=== PATIENT | female | born 1930 | race Caucasian/White ===

== ENCOUNTER 2019-01-06 07:44 | Inpatient (IN) | payer MEDICARE, BC ==
[2019-01-06 08:34] LABS: CHLORIDE,CL 100 mEq/L (98-106); SODIUM,NA 139 mEq/L (136-145)
--- NOTE | 2019-01-06 09:13 | EDM.PDOC ---
ED HPI GENERAL MEDICAL PROBLEM - General Chief Complaint: Cardiovascular Problem Stated Complaint: PALPATIONS Time Seen by Provider: 01/06/19 08:35 Source of Information: Reports: Patient History Limitations: Reports: No Limitations - History of Present Illness INITIAL COMMENTS - FREE TEXT/NARRATIVE: Patient presents to ER this am with complaints of chest heaviness, palpitations and left arm numbness. States awoke around 0530 this am, felt like her heart was racing. Has a history of atrial fib for many years now, states pulse is faster at times but was more notable this am. No real pain. No shortness of breath. She noted that her arm felt like it "was asleep, couldn't straighten it ". She now states she can move it better but it feels numb yet and awkward. No dysphagia. Denies any difficulty with ambulation. No leg weakness. No headache. Was to see her hr manager for routine follow up on Monday. They felt she was maxed out on her medications. Was advised that if her heart rate was over 120, she should get it evaluated. Onset: Today, Sudden Duration: Hour(s): Location: Reports: Chest, Upper Extremity, Left Quality: Reports: Ache Severity: Mild Associated Symptoms: Reports: Weakness. Denies: Confusion, Chest Pain, Cough, Fever/Chills, Headaches, Loss of Appetite, Shortness of Breath - Related Data Allergies Allergy/AdvReac Type Severity Reaction Status Date / Time Penicillins Allergy Swelling Verified 01/06/19 08:30 Home Meds: Home Meds Allergy Tab 1 tab PO DAILY PRN 11/17/15 [History] Ascorbate Calcium [Vitamin C] 1 cap PO BID 11/17/15 [History] Aspirin [Halfprin] 81 mg PO DAILY 11/17/15 [History] Calcium Carb/D3/Mag AA Chelate [Coral Calcium Capsule] 1 tab PO BID 11/17/15 [ History] Metoprolol Tartrate 50 mg PO BID 11/17/15 [History] Multivitamin [Multi-Vitamin Daily] 1 tab PO DAILY 11/17/15 [History] Simvastatin [Zocor] 20 mg PO DAILY 11/17/15 [History] Zolpidem Tartrate 5 mg PO BEDTIME PRN 11/17/15 [History] Apixaban [Eliquis] 5 mg PO BID 02/17/16 [History] dilTIAZem HCl [Diltiazem 24Hr Cd] 300 mg PO DAILY 02/17/16 [History] Past Medical History HEENT History: Reports: Impaired Vision Other HEENT History: wears glasses Cardiovascular History: Reports: Afib, High Cholesterol, Hypertension [employer] History: Reports: - Past Surgical History HEENT Surgical History: Reports: Adenoidectomy, Tonsillectomy Social & Family History - Family History Family Medical History: Noncontributory - Tobacco Use Smoking Status *Q: Never Smoker ED ROS GENERAL - Review of Systems Review Of Systems: See Below Constitutional: Reports: Weakness. Denies: Fever, Chills, Malaise HEENT: Reports: Throat Pain. Denies: Ear Pain, Rhinitis, Sinus Problem, Vertigo Respiratory: Denies: Shortness of Breath, Cough Cardiovascular: Reports: Other (chest palpitations). Denies: Edema, Lightheadedness Endocrine: Denies: Fatigue GI/Abdominal: Denies: Abdominal Pain, Constipation, Diarrhea, Vomiting : Reports: No Symptoms Musculoskeletal: Reports: No Symptoms Skin: Reports: No Symptoms Neurological: Reports: Numbness, Weakness (left arm). Denies: Trouble Speaking , Difficulty Walking, Gait Disturbance Psychiatric: Reports: No Symptoms ED EXAM, GENERAL - Physical Exam Exam: See Below Exam Limited By: No Limitations General Appearance: Alert, WD/WN, No Apparent Distress Eye Exam: Bilateral Eye: EOMI, PERRL Ears: Normal External Exam, Normal TMs Throat/Mouth: Normal Inspection, Normal Oropharynx Head: Normocephalic Neck: Normal Inspection, Supple, Non-Tender Respiratory/Chest: No Respiratory Distress, Lungs Clear, Normal Breath Sounds Cardiovascular: Irregularly Irregular GI/Abdominal: Normal Bowel Sounds, Soft, Non-Tender Extremities: Normal Inspection, Normal Capillary Refill, Other (Alert and oriented. Answers all questions appropriately. Gait is steady, no leg weakness. Palmar grasp is strong, slower than the right. Slow with TYREE and point to point discretion but all other testing negative. See NIH scale. Scores a 1.) Neurological: Alert, Oriented, CN II-XII Intact, Normal Cognition, Normal Gait Psychiatric: Normal Affect, Normal Mood Skin Exam: Warm, Dry Course - Vital Signs Last Recorded V/S: Last Vital Signs Temp 98.1 F 01/06/19 08:00 Pulse 122 H 01/06/19 08:00 Resp 18 01/06/19 08:00 BP 153/95 H 01/06/19 08:00 Pulse Ox 95 01/06/19 08:00 - Orders/Labs/Meds Orders: Active Orders 24 hr Category Date Time Status Chest 2V [CR] Stat Exams 01/06/19 08:33 Taken Head w Cont [CT] Routine Exams 01/06/19 Taken Labs: Laboratory Tests 01/06/19 01/06/19 01/06/19 Range/Units 08:15 08:15 08:15 WBC 6.9 (5.0-10.0) 10^3/uL RBC 4.88 (4.00-5.50) 10^6/uL Hgb 15.7 (12.0-16.0) g/dL Hct 46.4 (37.0-47.0) % MCV 95.1 H (82.0-94.0) fL MCH 32.2 H (27.0-32.0) pg MCHC 33.8 (33.0-38.0) g/dL RDW Coeff of Edmund 12.9 (11.0-15.0) % Plt Count 225 (150-400) 10^3/uL Neut % (Auto) 65.4 (35-85) % Lymph % (Auto) 23.2 (10-55) % [place] % (Auto) 9.7 (0-16) % Eos % (Auto) 1.4 (0-5) % Baso % (Auto) 0.3 (0-3) % Neut # (Auto) 4.54 (1.80-7.00) 10^3/uL Lymph # (Auto) 1.61 (1.00-4.80) 10^3/uL [place] # (Auto) 0.67 (0.00-0.80) 10^3/uL Eos # (Auto) 0.10 (0.00-0.45) 10^3/uL Baso # (Auto) 0.02 10^3/uL PT 11.7 (9.7-12.3) SEC INR 1.14 (0.92-1.18) APTT 45.6 H (23.2-32.3) SEC Sodium 139 (136-145) mEq/L Potassium 3.4 L (3.5-5.0) mEq/L Chloride 100 (98-106) mEq/L Carbon Dioxide 29 (21-32) mmol/L BUN 14 (7-18) mg/dL Creatinine 0.8 (0.6-1.0) mg/dL Est Cr Clr Drug Dosing TNP Estimated GFR (MDRD) > 60 (>=60) mL/min Glucose 163 H (75-99) mg/dL Calcium 9.3 (8.4-10.1) mg/dL Lactate Dehydrogenase 221 H (100-190) U/L Creatine Kinase 47 (21-215) U/L Troponin I < 0.017 (0.00-0.06) ng/mL - Re-Assessments/Exams Free Text/Narrative Re-Assessment/Exam: 01/06/[address] scan read as normal. EKG shows atrial fib, rate around 100 now. Will admit to observation for neuro checks, telemetry. Departure - Departure Time of Disposition: 09:32 Disposition: Refer to Observation Condition: Fair Clinical Impression: Atrial fibrillation, TIA (transient ischemic attack) - Problem List & Annotations (1) Atrial fibrillation SNOMED Code(s): 16709023 Code(s): I48.91 - UNSPECIFIED ATRIAL FIBRILLATION Status: Chronic Priority: High Qualifiers: Atrial fibrillation type: chronic Qualified Code(s): I48.2 - Chronic atrial fibrillation (2) TIA (transient ischemic attack) SNOMED Code(s): 970585580 Code(s): G45.9 - TRANSIENT CEREBRAL ISCHEMIC ATTACK, UNSPECIFIED Status: Acute Priority: High - Problem List Review Problem List Initiated/Reviewed/Updated: Yes - My Orders Last 24 Hours: My Active Orders 01/06/19 Head w Cont [CT] Routine 01/06/19 08:33 Chest 2V [CR] Stat - Assessment/Plan Admission H&P: Please use this note as an admission H&P Last 24 Hours: My Active Orders 01/06/19 Head w Cont [CT] Routine 01/06/19 08:33 Chest 2V [CR] Stat Assessment:: TIA chronic Atrial Fib Plan: Admit observation. Monitor neuro status. Telemetry. Treat UTI
[2019-01-06] MEDS ORDERED: ZOLPIDEM 5 MG PO PRN (11:40)
[2019-01-06] MEDS ORDERED: Acetaminophen 325 MG Tab PO PRN (11:40)
[2019-01-06] MEDS ORDERED: Ondansetron 4 MG Tab.DIS PO PRN (11:40)
[2019-01-06] MEDS ORDERED: Sodium Chloride 0.9% 10 ML Syringe FLUSH PRN (11:40)
[2019-01-06] MEDS: cefTRIAXone 1 GM Vial IVPUSH SCH (12:40)
[2019-01-06] MEDS: METOPROLOL TARTRATE 50 MG PO SCH ×2 (18:52→19:24)
[2019-01-06] MEDS: RIVAROXABAN 20 MG PO SCH (18:53)
[2019-01-07 07:17] LABS: CHLORIDE,CL 100 mEq/L (98-106); SODIUM,NA 139 mEq/L (136-145)
[2019-01-07] MEDS: DILTIAZEM 180 MG PO SCH (07:37)
[2019-01-07] MEDS: Aspirin 81 MG Tab.EC PO SCH (07:38)
[2019-01-07] MEDS: Simvastatin 20 MG Tab PO SCH (07:39)
[2019-01-07] MEDS: Metoprolol Tartrate 50 MG Tab PO SCH ×2 (07:39→17:46)
[2019-01-07] MEDS: Furosemide 40 MG Tab PO SCH (09:07)
[2019-01-07] MEDS: Losartan 100 MG Tab PO SCH (09:07)
[2019-01-07] MEDS: Potassium Chloride 10 MEQ Tab.ER PO SCH (09:07)
--- NOTE | 2019-01-07 09:20 | PCM.PN ---
- General Info Date of Service: 01/07/19 Admission Dx/Problem (Free Text): TIA Atrial Fib Functional Status: Reports: Pain Controlled, Tolerating Diet, Ambulating - Review of Systems General: Reports: Weakness. Denies: Fatigue, Malaise HEENT: Denies: Ear Pain, Sinus Congestion, Rhinitis Pulmonary: Denies: Shortness of Breath, Cough Cardiovascular: Denies: Chest Pain, Edema, Lightheadedness Gastrointestinal: Denies: Abdominal Pain, Nausea, Vomiting Genitourinary: Reports: No Symptoms Musculoskeletal: Reports: No Symptoms Neurological: Reports: Weakness, Other (left arm weakness. Feels uncoordinated. Difficulty fully opening her left hand). Denies: Trouble Speaking, Difficulty Walking - Patient Data Vitals - Most Recent: Last Vital Signs Temp 97.6 F 01/07/19 08:00 Pulse 82 01/07/19 08:00 Resp 18 01/07/19 08:00 BP 147/88 H 01/07/19 09:07 Pulse Ox 94 L 01/07/19 08:00 Weight - Most Recent: 144 lb 6.4 oz Lab Results Last 24 Hours: Laboratory Results - last 24 hr 01/07/19 01/07/19 Range/Units 06:45 06:45 WBC 8.0 (5.0-10.0) 10^3/uL RBC 4.77 (4.00-5.50) 10^6/uL Hgb 15.5 (12.0-16.0) g/dL Hct 45.3 (37.0-47.0) % MCV 95.0 H (82.0-94.0) fL MCH 32.5 H (27.0-32.0) pg MCHC 34.2 (33.0-38.0) g/dL RDW Coeff of Edmund 12.9 (11.0-15.0) % Plt Count 239 (150-400) 10^3/uL Neut % (Auto) 59.3 (35-85) % Lymph % (Auto) 28.4 (10-55) % [place] % (Auto) 10.4 (0-16) % Eos % (Auto) 1.5 (0-5) % Baso % (Auto) 0.4 (0-3) % Neut # (Auto) 4.77 (1.80-7.00) 10^3/uL Lymph # (Auto) 2.28 (1.00-4.80) 10^3/uL [place] # (Auto) 0.84 H (0.00-0.80) 10^3/uL Eos # (Auto) 0.12 (0.00-0.45) 10^3/uL Baso # (Auto) 0.03 10^3/uL Sodium 139 (136-145) mEq/L Potassium 3.2 L (3.5-5.0) mEq/L Chloride 100 (98-106) mEq/L Carbon Dioxide 27 (21-32) mmol/L BUN 10 (7-18) mg/dL Creatinine 0.6 (0.6-1.0) mg/dL Est Cr Clr Drug Dosing 48.34 mL/min Estimated GFR (MDRD) > 60 (>=60) mL/min Glucose 103 H D (75-99) mg/dL Calcium 9.0 (8.4-10.1) mg/dL Burt Results Last 24 Hours: Microbiology 01/06/19 09:00 Urine Culture - Preliminary Urine, Clean Catch Gram Negative Rods Med Orders - Current: Current Medications Acetaminophen (Tylenol) 650 mg PO Q4H PRN PRN Reason: Pain (Mild 1-3)/fever Aspirin (Halfprin) 81 mg PO DAILY [facility] Last Admin: 01/07/19 07:38 Dose: 81 mg Ceftriaxone Sodium (Rocephin) 1 gm IVPUSH Q24H [facility] Last Admin: 01/06/19 12:40 Dose: 1 gm Diltiazem HCl (Cardizem Cd) 360 mg PO DAILY [facility] Last Admin: 01/07/19 07:37 Dose: 360 mg Furosemide (Lasix) 60 mg PO DAILY [facility] Last Admin: 01/07/19 09:07 Dose: 60 mg Losartan Potassium (Cozaar) 100 mg PO DAILY [facility] Last Admin: 01/07/19 09:07 Dose: 100 mg Metoprolol Tartrate (Lopressor) 100 mg PO BID@0800,1730 [facility] Last Admin: 01/07/19 07:39 Dose: 100 mg Patients Own Med ( Rivaroxaban [Xarelto ] 20 Mg) 20 mg PO QPM [facility] Last Admin: 01/06/19 18:53 Dose: 20 mg Non-Formulary Medication (Melatonin [Melatonin]) 5 mg PO BEDTIME PRN PRN Reason: Insomnia Ondansetron HCl (Zofran Odt) 4 mg PO Q4H PRN PRN Reason: nausea, able to take PO Potassium Chloride (Klor-Con 10) 20 meq PO DAILY [facility] Last Admin: 01/07/19 09:07 Dose: 20 meq Simvastatin (Zocor) 20 mg PO DAILY [facility] Last Admin: 01/07/19 07:39 Dose: 20 mg Sodium Chloride (Saline Flush) 10 ml FLUSH ASDIRECTED PRN PRN Reason: Keep Vein Open Zolpidem Tartrate (Ambien) 5 mg PO BEDTIME PRN PRN Reason: Insomnia Last Admin: 01/06/19 22:31 Dose: 5 mg Zolpidem Tartrate (Ambien) 5 mg PO BEDTIME [facility] Discontinued Medications Metoprolol Tartrate (Lopressor) 100 mg PO BID [facility] Last Admin: 01/06/19 19:24 Dose: Not Given - Exam General: Alert, Oriented HEENT: Mucous Membr. Moist/[place] Neck: Supple Lungs: Clear to Auscultation, Normal Respiratory Effort Cardiovascular: Irregular Rhythm GI/Abdominal Exam: Normal Bowel Sounds, Soft, Non-Tender Extremities: Normal Inspection, No Pedal Edema Skin: Warm, Dry Neurological: Other (Left arm is weaker than yesterday. Palmar grasp unequal. Left 2-5 digits do appear somewhat contracted today. Arm is uncoordinated. Unable to perform her usual tasks. ) - Problem List & Annotations (1) Atrial fibrillation SNOMED Code(s): 56156602 Code(s): I48.91 - UNSPECIFIED ATRIAL FIBRILLATION Status: Chronic Priority: High Current Visit: Yes Qualifiers: Atrial fibrillation type: chronic Qualified Code(s): I48.2 - Chronic atrial fibrillation (2) CVA (cerebral vascular accident) SNOMED Code(s): 238842107 Code(s): I63.9 - CEREBRAL INFARCTION, UNSPECIFIED Status: Acute Priority : High Current Visit: Yes Qualifiers: Laterality of affected vessel: left - Problem List Review Problem List Initiated/Reviewed/Updated: Yes - My Orders Last 24 Hours: My Active Orders 01/06/19 08:33 Chest 2V [CR] Stat 01/06/19 08:43 Head wo Cont [CT] Routine 01/06/19 09:00 CULTURE URINE [RM] Stat 01/06/19 09:36 Resuscitation Status Routine 01/06/19 11:40 Patient Status [ADT] Routine Cardiac Monitoring [RC] 08,1999 Neuro Check [RC] 0400,0800,1200,1600,2000,0000 Oxygen Therapy [RC] .PRN Up With Assistance [RC] .PRN Vital Signs [RC] 0400,0800,1200,1600,2000,0000 Acetaminophen [Tylenol] 650 mg PO Q4H PRN Ondansetron [Zofran ODT] 4 mg PO Q4H PRN Sodium Chloride 0.9% [Saline Flush] 10 ml FLUSH ASDIRECTED PRN Zolpidem [Ambien] 5 mg PO BEDTIME PRN Saline Lock Insert [OM.PC] Routine 01/06/19 12:00 cefTRIAXone [Rocephin] 1 gm IVPUSH Q24H 01/06/19 Lunch Regular Diet [DIET] 01/07/19 08:00 Aspirin [Halfprin] 81 mg PO DAILY Diltiazem [Cardizem CD] 360 mg PO DAILY Metoprolol Tartrate [Lopressor] 100 mg PO BID@0800,1730 Simvastatin [Zocor] 20 mg PO DAILY 01/07/19 08:20 Brain wo Cont [MR] Routine Carotid Comp [US] Routine Echo Comp wo Cont [US] Routine 01/07/19 08:21 Melatonin [Melatonin] 5 mg PO BEDTIME PRN 01/07/19 08:34 Consult to Physical Therapy [PT Evaluation and Treatment] [CONS] Routine 01/07/19 09:00 Furosemide [Lasix] 60 mg PO DAILY Losartan [Cozaar] 100 mg PO DAILY Potassium Chloride [Klor-Con 10] 20 meq PO DAILY 01/07/19 20:00 Rivaroxaban [Xarelto] 20 mg PO QPM Zolpidem [Ambien] 5 mg PO BEDTIME - Assessment Assessment:: CVA Atrial Fib - Plan Plan:: Patient has more notable weakness in her left arm today than yesterday. Is having difficulty this am with extending her fingers, is uncoordinated. Not able to lift objects easily. She denies any neck pain. No chest pain. Does admit that she had palpitations last night, no heaviness with it. Is ambulating well without difficulty. No dysphagia. Patient was seen by cardiology on Monday in [place]. Had an echo at that time. Will obtain US of carotids today, MRI tomorrow. Continue with rate control with metoprolol. Xarelto and ASA. Physical therapy for strengthening. Transferred to inpatient today.
[2019-01-07] MEDS: cefTRIAXone 1 GM Vial IVPUSH SCH (11:50)
[2019-01-07] MEDS: Zolpidem 5 MG Tab PO SCH (19:41)
[2019-01-07] MEDS: RIVAROXABAN 20 MG PO SCH (19:41)
[2019-01-07] MEDS: MELATONIN 5 MG PO PRN (21:57)
[2019-01-08] MEDS: DILTIAZEM 180 MG PO SCH (07:34)
[2019-01-08] MEDS: Losartan 100 MG Tab PO SCH (07:35)
[2019-01-08] MEDS: Aspirin 81 MG Tab.EC PO SCH (07:35)
[2019-01-08] MEDS: Potassium Chloride 10 MEQ Tab.ER PO SCH (07:35)
[2019-01-08] MEDS: Furosemide 40 MG Tab PO SCH (07:36)
[2019-01-08] MEDS: Metoprolol Tartrate 50 MG Tab PO SCH ×2 (07:36→17:10)
[2019-01-08] MEDS: Simvastatin 20 MG Tab PO SCH (07:37)
[2019-01-08] MEDS: cefTRIAXone 1 GM Vial IVPUSH SCH (12:07)
[2019-01-08] MEDS: Zolpidem 5 MG Tab PO SCH (19:42)
[2019-01-08] MEDS: MELATONIN 5 MG PO PRN (19:42)
[2019-01-08] MEDS: RIVAROXABAN 20 MG PO SCH (19:42)
--- NOTE | 2019-01-08 21:43 | PCM.PN ---
- General Info Date of Service: 01/08/19 Admission Dx/Problem (Free Text): TIA Atrial Fib Functional Status: Reports: Pain Controlled, Tolerating Diet, Ambulating - Review of Systems General: Reports: Weakness (left arm) HEENT: Reports: No Symptoms Pulmonary: Denies: Shortness of Breath, Cough Cardiovascular: Denies: Chest Pain, Edema, Lightheadedness Gastrointestinal: Denies: Abdominal Pain, Nausea, Vomiting Genitourinary: Reports: No Symptoms Musculoskeletal: Reports: No Symptoms Skin: Reports: No Symptoms Neurological: Reports: Weakness (to left arm) - Patient Data Vitals - Most Recent: Last Vital Signs Temp 98.5 F 01/08/19 19:20 Pulse 75 01/08/19 19:20 Resp 20 01/08/19 19:20 BP 114/70 01/08/19 19:20 Pulse Ox 95 01/08/19 19:20 Weight - Most Recent: 144 lb 6.4 oz Burt Results Last 24 Hours: Microbiology 01/06/19 09:00 Urine Culture - Final Urine, Clean Catch Escherichia Coli Med Orders - Current: Current Medications Acetaminophen (Tylenol) 650 mg PO Q4H PRN PRN Reason: Pain (Mild 1-3)/fever Aspirin (Halfprin) 81 mg PO DAILY [facility] Last Admin: 01/08/19 07:35 Dose: 81 mg Ceftriaxone Sodium (Rocephin) 1 gm IVPUSH Q24H [facility] Last Admin: 01/08/19 12:07 Dose: 1 gm Diltiazem HCl (Cardizem Cd) 360 mg PO DAILY [facility] Last Admin: 01/08/19 07:34 Dose: 360 mg Furosemide (Lasix) 60 mg PO DAILY [facility] Last Admin: 01/08/19 07:36 Dose: 60 mg Losartan Potassium (Cozaar) 100 mg PO DAILY [facility] Last Admin: 01/08/19 07:35 Dose: 100 mg Metoprolol Tartrate (Lopressor) 100 mg PO BID@0800,1730 [facility] Last Admin: 01/08/19 17:10 Dose: 100 mg Patients Own Med ( Rivaroxaban [Xarelto ] 20 Mg) 20 mg PO QPM [facility] Last Admin: 01/08/19 19:42 Dose: 20 mg Ptom Melatonin 5 (Mg) 5 mg PO BEDTIME PRN PRN Reason: Insomnia Last Admin: 01/08/19 19:42 Dose: 5 mg Ondansetron HCl (Zofran Odt) 4 mg PO Q4H PRN PRN Reason: nausea, able to take PO Potassium Chloride (Klor-Con 10) 20 meq PO DAILY [facility] Last Admin: 01/08/19 07:35 Dose: 20 meq Simvastatin (Zocor) 20 mg PO DAILY [facility] Last Admin: 01/08/19 07:37 Dose: 20 mg Sodium Chloride (Saline Flush) 10 ml FLUSH ASDIRECTED PRN PRN Reason: Keep Vein Open Zolpidem Tartrate (Ambien) 5 mg PO BEDTIME PRN PRN Reason: Insomnia Last Admin: 01/06/19 22:31 Dose: 5 mg Zolpidem Tartrate (Ambien) 5 mg PO BEDTIME [facility] Last Admin: 01/08/19 19:42 Dose: 5 mg Discontinued Medications Metoprolol Tartrate (Lopressor) 100 mg PO BID [facility] Last Admin: 01/06/19 19:24 Dose: Not Given - Exam General: Alert, Oriented HEENT: Mucous Membr. Moist/[place] Neck: Supple Lungs: Clear to Auscultation, Normal Respiratory Effort Cardiovascular: Irregular Rhythm GI/Abdominal Exam: Normal Bowel Sounds, Soft, Non-Tender Extremities: Normal Inspection, No Pedal Edema Skin: Warm, Dry Neurological: Other (left arm strength is weak yet. Has purposeful movements with left arm but uncoordinated. Difficulty with grasping, point to point and [place]. No other neurological deficits noted elsewhere) - Problem List & Annotations (1) Atrial fibrillation SNOMED Code(s): 99543678 Code(s): I48.91 - UNSPECIFIED ATRIAL FIBRILLATION Status: Chronic Priority: High Current Visit: Yes Qualifiers: Atrial fibrillation type: chronic Qualified Code(s): I48.2 - Chronic atrial fibrillation (2) CVA (cerebral vascular accident) SNOMED Code(s): 384350843 Code(s): I63.9 - CEREBRAL INFARCTION, UNSPECIFIED Status: Acute Priority : High Current Visit: Yes Qualifiers: Laterality of affected vessel: left - Problem List Review Problem List Initiated/Reviewed/Updated: Yes - My Orders Last 24 Hours: My Active Orders 01/08/19 08:20 Brain wo Cont [MR] Routine 01/08/19 08:49 Consult to Case Management/Body Shop Worker [CONS] Routine - Assessment Assessment:: CVA Atrial Fib - Plan Plan:: Patient has more notable weakness in her left arm today than yesterday. Is having difficulty this am with extending her fingers, is uncoordinated. Not able to lift objects easily. She denies any neck pain. No chest pain. Does admit that she had palpitations last night, no heaviness with it. Is ambulating well without difficulty. No dysphagia. Patient was seen by cardiology on Monday in [place]. Had an echo at that time. Will obtain US of carotids today, MRI tomorrow. Continue with rate control with metoprolol. Xarelto and ASA. Physical therapy for strengthening. Transferred to inpatient today. 01-08-2019 Patient stable, status unchanged. Continues to have difficult with left arm weakness. Is uncoordinated. Movements with left hand are more purposeful. Has difficulty with grasping items. Palmar grasp weak in comparison to the right arm. Urine culture did grow out e coli, is covered with Rocephin. Blood pressure stable after meds given. Telemetry notes atrial fib, rate control responds with metoprolol once given. Will continue with PT. Have discussed longterm placement for longer/more intense rehab. Patient and family agree. building services technician consult arranged. Continue with Xarelto and Aspirin. Awaiting report of Carotid US and MRI done today.
[2019-01-09] MEDS: Furosemide 40 MG Tab PO SCH (07:27)
[2019-01-09] MEDS: Potassium Chloride 10 MEQ Tab.ER PO SCH (07:28)
[2019-01-09] MEDS: Metoprolol Tartrate 50 MG Tab PO SCH ×2 (07:29→16:44)
[2019-01-09] MEDS: Aspirin 81 MG Tab.EC PO SCH (07:29)
[2019-01-09] MEDS: Simvastatin 20 MG Tab PO SCH (07:29)
[2019-01-09] MEDS: Losartan 100 MG Tab PO SCH (07:29)
[2019-01-09] MEDS: DILTIAZEM 180 MG PO SCH (07:29)
[2019-01-09 07:52] LABS: CHLORIDE,CL 102 mEq/L (98-106); SODIUM,NA 138 mEq/L (136-145)
--- NOTE | 2019-01-09 09:58 | PCM.PN ---
- General Info Date of Service: 01/09/19 Admission Dx/Problem (Free Text): TIA Atrial Fib Functional Status: Reports: Pain Controlled, Tolerating Diet, Ambulating - Review of Systems General: Reports: Weakness (left arm) HEENT: Reports: No Symptoms Pulmonary: Denies: Shortness of Breath, Cough Cardiovascular: Denies: Chest Pain, Edema, Lightheadedness Gastrointestinal: Denies: Abdominal Pain, Nausea, Vomiting Genitourinary: Reports: No Symptoms Musculoskeletal: Reports: No Symptoms Skin: Reports: No Symptoms Neurological: Reports: Weakness (left arm weakness). Denies: Trouble Speaking, Difficulty Walking, Change in Speech, Gait Disturbance - Patient Data Vitals - Most Recent: Last Vital Signs Temp 97.8 F 01/09/19 08:00 Pulse 86 01/09/19 08:00 Resp 16 01/09/19 08:00 BP 118/69 01/09/19 08:00 Pulse Ox 97 01/09/19 08:00 Weight - Most Recent: 144 lb 6.4 oz Lab Results Last 24 Hours: Laboratory Results - last 24 hr 01/09/19 Range/Units 07:00 Sodium 138 (136-145) mEq/L Potassium 4.0 D (3.5-5.0) mEq/L Chloride 102 (98-106) mEq/L Carbon Dioxide 30 (21-32) mmol/L BUN 14 (7-18) mg/dL Creatinine 0.7 (0.6-1.0) mg/dL Est Cr Clr Drug Dosing 41.44 mL/min Estimated GFR (MDRD) > 60 (>=60) mL/min Glucose 96 (75-99) mg/dL Calcium 9.5 (8.4-10.1) mg/dL Magnesium 2.1 (1.8-2.4) mg/dL Triglycerides 89 (30-150) mg/dL Cholesterol 151 (0-199) mg/dL LDL Cholesterol, Calc 61 (0-99) mg/dL HDL Cholesterol 72 (60-90) mg/dL Burt Results Last 24 Hours: Microbiology 01/06/19 09:00 Urine Culture - Final Urine, Clean Catch Escherichia Coli Med Orders - Current: Current Medications Acetaminophen (Tylenol) 650 mg PO Q4H PRN PRN Reason: Pain (Mild 1-3)/fever Aspirin (Halfprin) 81 mg PO DAILY [facility] Last Admin: 01/09/19 07:29 Dose: 81 mg Ceftriaxone Sodium (Rocephin) 1 gm IVPUSH Q24H [facility] Last Admin: 01/08/19 12:07 Dose: 1 gm Diltiazem HCl (Cardizem Cd) 360 mg PO DAILY [facility] Last Admin: 01/09/19 07:29 Dose: 360 mg Furosemide (Lasix) 60 mg PO DAILY [facility] Last Admin: 01/09/19 07:27 Dose: 60 mg Losartan Potassium (Cozaar) 100 mg PO DAILY [facility] Last Admin: 01/09/19 07:29 Dose: 100 mg Metoprolol Tartrate (Lopressor) 100 mg PO BID@0800,1730 [facility] Last Admin: 01/09/19 07:29 Dose: 100 mg Patients Own Med ( Rivaroxaban [Xarelto ] 20 Mg) 20 mg PO QPM [facility] Last Admin: 01/08/19 19:42 Dose: 20 mg Ptom Melatonin 5 (Mg) 5 mg PO BEDTIME PRN PRN Reason: Insomnia Last Admin: 01/08/19 19:42 Dose: 5 mg Ondansetron HCl (Zofran Odt) 4 mg PO Q4H PRN PRN Reason: nausea, able to take PO Potassium Chloride (Klor-Con 10) 20 meq PO DAILY [facility] Last Admin: 01/09/19 07:28 Dose: 20 meq Simvastatin (Zocor) 20 mg PO DAILY [facility] Last Admin: 01/09/19 07:29 Dose: 20 mg Sodium Chloride (Saline Flush) 10 ml FLUSH ASDIRECTED PRN PRN Reason: Keep Vein Open Zolpidem Tartrate (Ambien) 5 mg PO BEDTIME PRN PRN Reason: Insomnia Last Admin: 01/06/19 22:31 Dose: 5 mg Zolpidem Tartrate (Ambien) 5 mg PO BEDTIME [facility] Last Admin: 01/08/19 19:42 Dose: 5 mg Discontinued Medications Metoprolol Tartrate (Lopressor) 100 mg PO BID [facility] Last Admin: 01/06/19 19:24 Dose: Not Given - Exam General: Alert, Oriented HEENT: Mucous Membr. Moist/[place] Neck: Supple Lungs: Clear to Auscultation, Normal Respiratory Effort Cardiovascular: Irregular Rhythm GI/Abdominal Exam: Normal Bowel Sounds, Soft, Non-Tender Extremities: Other (left fingers rest in a flexed position) Skin: Warm, Dry Neurological: Other (Patient continues to have left arm weakness. Fingers flexed. Has difficulty straightening, movements are slow and purposeful yet. Grasp is weak. She has difficulty with pincer grasp. ) - Problem List & Annotations (1) Atrial fibrillation SNOMED Code(s): 43768101 Code(s): I48.91 - UNSPECIFIED ATRIAL FIBRILLATION Status: Chronic Priority: High Current Visit: Yes Qualifiers: Atrial fibrillation type: chronic Qualified Code(s): I48.2 - Chronic atrial fibrillation (2) CVA (cerebral vascular accident) SNOMED Code(s): 868576904 Code(s): I63.9 - CEREBRAL INFARCTION, UNSPECIFIED Status: Acute Priority : High Current Visit: Yes Qualifiers: Laterality of affected vessel: left - Problem List Review Problem List Initiated/Reviewed/Updated: Yes - Assessment Assessment:: CVA Atrial Fib - Plan Plan:: Patient has more notable weakness in her left arm today than yesterday. Is having difficulty this am with extending her fingers, is uncoordinated. Not able to lift objects easily. She denies any neck pain. No chest pain. Does admit that she had palpitations last night, no heaviness with it. Is ambulating well without difficulty. No dysphagia. Patient was seen by cardiology on Monday in [place]. Had an echo at that time. Will obtain US of carotids today, MRI tomorrow. Continue with rate control with metoprolol. Xarelto and ASA. Physical therapy for strengthening. Transferred to inpatient today. 01-08-2019 Patient stable, status unchanged. Continues to have difficult with left arm weakness. Is uncoordinated. Movements with left hand are more purposeful. Has difficulty with grasping items. Palmar grasp weak in comparison to the right arm. Urine culture did grow out e coli, is covered with Rocephin. Blood pressure stable after meds given. Telemetry notes atrial fib, rate control responds with metoprolol once given. Will continue with PT. Have discussed long term placement for longer/more intense rehab. Patient and family agree. director professional services consult arranged. Continue with Xarelto and Aspirin. Awaiting report of Carotid US and MRI done today. 01-09-2019 Patient remains stable, status relatively unchanged yet. Left hand remains weak , grasp is poor. Finger movement is slow and purposeful. She is working with modalities with PT to prevent contractures of her hand and gain strength. Remaining portion of her neurological work up is negative. Blood pressures are stable, today 118/69. Labs normal today, potassium 4.0. Sodium 138. Carotid ultrasound is essentially negative. Will continue with PT. DC telemetry. Transfer to [place] tomorrow.
[2019-01-09] MEDS: cefTRIAXone 1 GM Vial IVPUSH SCH (11:48)
[2019-01-09] MEDS: Zolpidem 5 MG Tab PO SCH (20:04)
[2019-01-09] MEDS: RIVAROXABAN 20 MG PO SCH (20:05)
[2019-01-10 07:55] VITALS: BP 136/89
[2019-01-10] MEDS: Potassium Chloride 10 MEQ Tab.ER PO SCH (07:55)
[2019-01-10] MEDS: Losartan 100 MG Tab PO SCH (07:55)
[2019-01-10] MEDS: Simvastatin 20 MG Tab PO SCH (07:55)
[2019-01-10] MEDS: Metoprolol Tartrate 50 MG Tab PO SCH (07:56)
[2019-01-10] MEDS: Furosemide 40 MG Tab PO SCH (07:56)
[2019-01-10] MEDS: Aspirin 81 MG Tab.EC PO SCH (07:56)
[2019-01-10] MEDS: DILTIAZEM 180 MG PO SCH (07:58)
[2019-01-10] MEDS: cefTRIAXone 1 GM Vial IVPUSH SCH (10:19)
--- NOTE | 2019-01-10 22:00 | PCM.DCSUM1 ---
Discharge Summary - Hospital Course Free Text/Narrative:: Patient presented to ER with complaints of chest heaviness, palpitations and left arm weakness. States awoke with "heart racing at around 0530". Had not yet taken her am metoprolol when presented and heart rate continued in the 120s. Mild chest heaviness but no pain. Relates was at the respiratory physician on Monday, no changes made. States was told if heart rate over 118, should be evaluated. Patient states left arm this am seems awkward. Can't straighten fingers well. No other neurological deficits noted. Is currently on ASA and Xarelto for her atrial fib. Work up in the ER did show concerns with TIA as had difficulty with point to point discretion and Renetta. Remaining neurological exam normal, score 1 on NIH scale. EKG shows atrial fib with RVR. Troponin negative. Admitted for telemetry, neuro checks. Diagnosis: Stroke: Yes Modified [place] Scale: Slight Disable;Unable to Carry Out Prev Act.Able to Look After Affairs Modified [place] Scale Score: 2 - Discharge Data Discharge Date: 01/10/19 Discharge Disposition: DC/Tfer to [facility] Condition: Fair - Discharge Diagnosis/Problem(s) (1) Atrial fibrillation SNOMED Code(s): 49251274 ICD Code: I48.91 - UNSPECIFIED ATRIAL FIBRILLATION Status: Chronic Priority: High Qualifiers: Atrial fibrillation type: chronic Qualified Code(s): I48.2 - Chronic atrial fibrillation (2) CVA (cerebral vascular accident) SNOMED Code(s): 796852332 ICD Code: I63.9 - CEREBRAL INFARCTION, UNSPECIFIED Status: Acute Priority : High Qualifiers: Laterality of affected vessel: left - Patient Summary/Data Complications: none Consults: Consultations 01/07/19 08:34 Consult to Physical Therapy [PT Evaluation and Treatment] [CONS] Routine 01/08/19 08:49 Consult to Case Management/Diagnostics Tech [CONS] Routine Hospital Course: Patient has continued to have left arm weakness, even more prevalent on day 1 after admit. Fingers flexed, opens them with purposeful movement. Strength is much weaker in left arm and grasp. She is ambulating without difficulty. No dysphagia. Initial CT scan was negative. Carotid US negative. Echo obtained from [facility] is stable. MRI was done which is positive for a CVA. Patient has been on Xarelto and aspirin prior to this. Telemetry did show atrial fib with rapid ventricular response at times, does respond well to her metoprolol. Blood pressure has been stable. Potassium was low on admit, has now returned to normal. Patient will transfer to [facility] for ongoing strengthening with PT and OT. Continue other usual meds. - Patient Instructions Diet: Usual Diet as Tolerated Activity: As Tolerated - Discharge Plan *PRESCRIPTION DRUG MONITORING PROGRAM REVIEWED*: No *COPY OF PRESCRIPTION DRUG MONITORING REPORT IN PATIENT ASCENCION: No Prescriptions/Med Rec: Cefuroxime Axetil [Ceftin] 250 mg PO BID #14 tablet Home Medications: Home Meds Allergy Tab 1 tab PO DAILY PRN 11/17/15 [History] Ascorbate Calcium [Vitamin C] 1 cap PO BID 11/17/15 [History] Aspirin [Halfprin] 81 mg PO DAILY 11/17/15 [History] Calcium Carb/D3/Mag AA Chelate [Coral Calcium Capsule] 1 tab PO BID 11/17/15 [ History] Metoprolol Tartrate 100 mg PO BID 11/17/15 [History] Multivitamin [Multi-Vitamin Daily] 1 tab PO DAILY 11/17/15 [History] Simvastatin [Zocor] 20 mg PO DAILY 11/17/15 [History] Zolpidem Tartrate 5 mg PO BEDTIME PRN 11/17/15 [History] dilTIAZem HCl [Diltiazem 24Hr ER] 360 mg PO DAILY 02/17/16 [History] Melatonin 5 mg PO BEDTIME PRN 01/06/19 [History] Rivaroxaban [Xarelto] 20 mg PO DAILY 01/06/19 [History] Furosemide 60 mg PO DAILY 01/07/19 [History] Losartan [Cozaar] 100 mg PO DAILY 01/07/19 [History] Potassium Chloride 20 meq PO DAILY 01/07/19 [History] Zolpidem Tartrate [Ambien] 5 mg PO BEDTIME 01/07/19 [History] Cefuroxime Axetil [Ceftin] 250 mg PO BID #14 tablet 01/10/19 [Rx] Forms: ED Department Discharge Referrals: Toro Landrum MD [Primary Care Provider] - (Will Dr. Landrum on rounds as needed. ) - Discharge Summary/Plan Comment DC Time >30 min.: Yes Discharge Summary/Plan Comment: Transfer to [facility] Time with patient and family 15 minutes Time for orders 15 minutes Time for documentation 10 minutes - General Info Date of Service: 01/10/19 Admission Dx/Problem (Free Text: TIA Atrial Fib Functional Status: Reports: Pain Controlled, Tolerating Diet, Ambulating - Review of Systems General: Reports: Weakness (left arm) HEENT: Reports: No Symptoms Pulmonary: Denies: Shortness of Breath, Cough, Wheezing Cardiovascular: Denies: Chest Pain, Edema, Lightheadedness Gastrointestinal: Denies: Abdominal Pain, Nausea, Vomiting Genitourinary: Reports: No Symptoms Musculoskeletal: Reports: No Symptoms Skin: Reports: No Symptoms Neurological: Reports: Weakness (left arm weakness) - Patient Data Vitals - Most Recent: Last Vital Signs Temp 99.1 F 01/10/19 07:54 Pulse 101 H 01/10/19 07:56 Resp 18 01/10/19 07:54 BP 136/89 01/10/19 07:56 Pulse Ox 98 01/10/19 07:54 Weight - Most Recent: 144 lb 6.4 oz Med Orders - Current: Current Medications Discontinued Medications Acetaminophen (Tylenol) 650 mg PO Q4H PRN PRN Reason: Pain (Mild 1-3)/fever Aspirin (Halfprin) 81 mg PO DAILY [facility] Last Admin: 01/10/19 07:56 Dose: 81 mg Ceftriaxone Sodium (Rocephin) 1 gm IVPUSH Q24H [facility] Last Admin: 01/10/19 10:19 Dose: 1 gm Diltiazem HCl (Cardizem Cd) 360 mg PO DAILY [facility] Last Admin: 01/10/19 07:58 Dose: 360 mg Furosemide (Lasix) 60 mg PO DAILY [facility] Last Admin: 01/10/19 07:56 Dose: 60 mg Losartan Potassium (Cozaar) 100 mg PO DAILY [facility] Last Admin: 01/10/19 07:55 Dose: 100 mg Metoprolol Tartrate (Lopressor) 100 mg PO BID [facility] Last Admin: 01/06/19 19:24 Dose: Not Given Metoprolol Tartrate (Lopressor) 100 mg PO BID@0800,1730 [facility] Last Admin: 01/10/19 07:56 Dose: 100 mg Patients Own Med ( Rivaroxaban [Xarelto ] 20 Mg) 20 mg PO QPM [facility] Last Admin: 01/09/19 20:05 Dose: 20 mg Ptom Melatonin 5 (Mg) 5 mg PO BEDTIME PRN PRN Reason: Insomnia Last Admin: 01/08/19 19:42 Dose: 5 mg Ondansetron HCl (Zofran Odt) 4 mg PO Q4H PRN PRN Reason: nausea, able to take PO Potassium Chloride (Klor-Con 10) 20 meq PO DAILY [facility] Last Admin: 01/10/19 07:55 Dose: 20 meq Simvastatin (Zocor) 20 mg PO DAILY [facility] Last Admin: 01/10/19 07:55 Dose: 20 mg Sodium Chloride (Saline Flush) 10 ml FLUSH ASDIRECTED PRN PRN Reason: Keep Vein Open Zolpidem Tartrate (Ambien) 5 mg PO BEDTIME PRN PRN Reason: Insomnia Last Admin: 01/06/19 22:31 Dose: 5 mg Zolpidem Tartrate (Ambien) 5 mg PO BEDTIME [facility] Last Admin: 01/09/19 20:04 Dose: 5 mg - Exam General: Reports: Alert, Oriented HEENT: Reports: Mucous Membr. Moist/[place] Neck: Reports: Supple Lungs: Reports: Clear to Auscultation, Normal Respiratory Effort Cardiovascular: Reports: Irregular Rhythm GI/Abdominal Exam: Normal Bowel Sounds, Soft, Non-Tender Extremities: Other (left arm weakness. Weaker palmar grasp. Extension of fingers slow and purposeful. No weakness in legs. ) Skin: Reports: Warm, Dry Neurological: Reports: No New Focal Deficit
== END 2019-01-10 10:55 | DRG 65 ==
LOC: CC.ED 07:44 → UNDOADMOB 09:00 → CC.MS 09:00 → OBSVTOIN 01-07 08:36
PROVIDERS: ADMIT Physician Assistant Medical; ATTEND Family Medicine
DX: I63.9 Cerebral infarction, unspecified (principal); N39.0 Urinary tract infection, site not specified; R29.701 NIHSS score 1; I48.2 Chronic atrial fibrillation; G83.24 Monoplegia of upper limb affecting left nondominant side; H54.7 Unspecified visual loss; E78.00 Pure hypercholesterolemia, unspecified; I10 Essential (primary) hypertension; B96.20 Unspecified Escherichia coli [E. coli] as the cause of diseases classified elsewhere; Z79.82 Long term (current) use of aspirin; Z79.01 Long term (current) use of anticoagulants; Z88.0 Allergy status to penicillin; Z79.899 Other long term (current) drug therapy; Z98.890 Other specified postprocedural states
CPT/HCPCS: 36415; 70450; 70460; 70551; 71046; 80048; 80061; 81001; 82550; 83615; 83735; 84484; 85025; 85610; 85730; 87086; 87088; 87186; 93880; 97110-GP; 97161-GP; 99285; A9270-GY; G0378; J0696; Q9967

== ENCOUNTER 2020-10-11 06:00 | Emergency (ER) | payer MEDICARE, BC ==
[2020-10-11 06:52] LABS: CHLORIDE,CL 103 mEq/L (98-106); SODIUM,NA 141 mEq/L (136-145)
--- NOTE | 2020-10-11 06:58 | EDM.PDOC ---
ED HPI GENERAL MEDICAL PROBLEM - General Chief Complaint: General Stated Complaint: Dizzy Time Seen by Provider: 10/11/20 06:54 Source of Information: Reports: Patient History Limitations: Reports: No Limitations - History of Present Illness INITIAL COMMENTS - FREE TEXT/NARRATIVE: This patient is an 89 year old female that presents to the ER. Patient lives at [facility]. Patient arrives via private vehicle from daughter. The patient reports that about 6am this morning she went to get up from bed and was "feeling funny". Patient reports that she had a funny feeling in her chest, but no pain. She reports she always feels short of breath, but this morning she felt a little more short of breath. She reports that she felt dizzy. She reports that she has felt this way before in the past and it was a-fib. Patient reports that she has also had a cough and congestion, but reports she gets that every year this time of year and she has had it for weeks. Patient reports that her dizziness, increased shortness of breath, and funny feeling went away upon her arrival here to the ER. The patient reports "she just cant move to fast", when I ask her what causes or makes any worse. Patient had no pain, and currently has no pain. She reports she feels fine in the ER without complaint. Onset: Today Onset Date: 10/11/20 Onset Time: 06:00 Improves with: Reports: None Worsens with: Reports: None Associated Symptoms: Reports: Cough ("weeks, every year"), Malaise, Shortness of Breath. Denies: Confusion, Chest Pain, cough w sputum, Diaphoresis, Fever/Chills, Headaches, Loss of Appetite, Nausea/Vomiting, Rash, Seizure, Syncope, Weakness - Related Data Allergies Allergy/AdvReac Type Severity Reaction Status Date / Time Penicillins Allergy Swelling Verified 10/11/20 06:28 Home Meds: Home Meds Ascorbate Calcium [Vitamin C] 1 cap PO BID 11/17/15 [History] Aspirin [Halfprin] 81 mg PO DAILY 11/17/15 [History] Calcium Carb/D3/Mag AA Chelate [Coral Calcium Capsule] 1 tab PO BID 11/17/15 [History] Metoprolol Tartrate 100 mg PO BID 11/17/15 [History] Multivitamin [Multi-Vitamin Daily] 1 tab PO DAILY 11/17/15 [History] Simvastatin [Zocor] 20 mg PO DAILY 11/17/15 [History] dilTIAZem HCL [Diltiazem 24Hr ER (Cd)] 360 mg PO DAILY 02/17/16 [History] Melatonin 5 mg PO BEDTIME PRN 01/06/19 [History] Rivaroxaban [Xarelto] 20 mg PO DAILY 01/06/19 [History] Furosemide 60 mg PO DAILY 01/07/19 [History] Losartan [Cozaar] 100 mg PO DAILY 01/07/19 [History] Potassium Chloride 20 meq PO DAILY 01/07/19 [History] Cholecalciferol (Vitamin D3) [Vitamin D3] 2,000 unit PO DAILY 10/11/20 [History] Donepezil HCl [Aricept] 23 mg PO DAILY 10/11/20 [History] Mirtazapine [Remeron] 7.5 mg PO BEDTIME 10/11/20 [History] Vitamin B Complex [B Complex] 1 each PO DAILY 10/11/20 [History] Past Medical History HEENT History: Reports: Impaired Vision Other HEENT History: wears glasses Cardiovascular History: Reports: Afib, High Cholesterol, 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 Denies: Fever, Chills HEENT: Reports: Sinus Problem. Denies: Rhinitis, Throat Pain Respiratory: Reports: Shortness of Breath, Cough. Denies: Wheezing, Sputum Cardiovascular: Reports: Palpitations ("funny"). Denies: Chest Pain, Syncope Endocrine: Reports: No Symptoms GI/Abdominal: Reports: No Symptoms. Denies: Abdominal Pain, Diarrhea, Nausea, Vomiting : Reports: No Symptoms Musculoskeletal: Reports: No Symptoms Skin: Reports: No Symptoms Neurological: Reports: Dizziness. Denies: Headache, Numbness, Seizure, Syncope, Tingling, Tremors, Difficulty Walking, Weakness, Change in Speech Psychiatric: Reports: No Symptoms Hematologic/Lymphatic: Reports: No Symptoms Immunologic: Reports: No Symptoms ED EXAM, GENERAL - Physical Exam Exam: See Below Exam Limited By: No Limitations General Appearance: Alert, WD/WN, No Apparent Distress Eye Exam: Bilateral Eye: EOMI, Normal Inspection, PERRL Ears: Normal External Exam, Normal Canal, Hearing Grossly Normal, Normal TMs Ear Exam: Bilateral Ear: Auricle Normal, Canal Normal, TM normal Nose: Normal Inspection, Normal Mucosa, No Blood Throat/Mouth: Normal Inspection, Normal Lips, Normal Teeth, Normal Gums, Normal Oropharynx, Normal Voice, No Airway Compromise Head: Atraumatic, Normocephalic Neck: Normal Inspection, Supple, Non-Tender, Full Range of Motion Respiratory/Chest: No Respiratory Distress, Lungs Clear, Normal Breath Sounds, No Accessory Muscle Use, Chest Non-Tender Cardiovascular: Normal Peripheral Pulses, No Edema, No Gallop, No JVD, No Murmur, No Rub, Irregularly Irregular (a-fib rate 90s) Peripheral Pulses: 2+: Radial (L), Radial (R), Posterior Tibial (L), Posterior Tibial (R) GI/Abdominal: Normal Bowel Sounds, Soft, Non-Tender, No Organomegaly, No Distention, No Abnormal Bruit, No Mass, Pelvis Stable Back Exam: Normal Inspection, Full Range of Motion Extremities: Normal Inspection, Normal Range of Motion, Non-Tender, No Pedal Edema, Normal Capillary Refill Neurological: Alert, CN II-XII Intact, Normal Cognition, Normal Gait, No Motor/Sensory Deficits. No: Oriented (She is oriented to self, place, time of day, history. She does say it is year 2001.) Psychiatric: Normal Affect, Normal Mood Skin Exam: Warm, Dry, Intact, Normal Color, No Rash Lymphatic: No Adenopathy #1 Interpretation EKG Date: 10/11/20 Time: 06:19 Rhythm: A-Fib Rate (Beats/Min): 92 QRS: Normal ST-T: Normal QT: Normal Comparison: No Change (from 2019, rate 100, a-fib.) Course - Vital Signs Last Recorded V/S: Last Vital Signs Temp 98.2 F 10/11/20 06:08 Pulse 104 H 10/11/20 08:21 Resp 14 10/11/20 08:21 BP 133/74 10/11/20 08:21 Pulse Ox 98 10/11/20 08:21 - Orders/Labs/Meds Orders: Active Orders 24 hr Category Date Time Status Chest 2V [CR] Stat Exams 10/11/20 06:34 Taken Head wo Cont [CT] Stat Exams 10/11/20 06:53 Taken UA W/MICROSCOPIC [URIN] Stat Lab 10/11/20 06:13 Ordered Labs: Laboratory Tests 10/11/20 10/11/20 10/11/20 Range/Units 06:32 06:32 06:32 WBC 7.4 (5.0-10.0) 10^3/uL RBC 4.44 (4.00-5.50) 10^6/uL Hgb 14.2 (12.0-16.0) g/dL Hct 42.8 (37.0-47.0) % MCV 96.4 H (82.0-94.0) fL MCH 32.0 (27.0-32.0) pg MCHC 33.2 (33.0-38.0) g/dL RDW Coeff of Edmund 13.5 (11.0-15.0) % Plt Count 215 (150-400) 10^3/uL Neut % (Auto) 56.6 (35-85) % Lymph % (Auto) 28.9 (10-55) % Tate % (Auto) 11.5 (0-16) % Eos % (Auto) 2.6 (0-5) % Baso % (Auto) 0.4 (0-3) % Neut # (Auto) 4.19 (1.80-7.00) 10^3/uL Lymph # (Auto) 2.14 (1.00-4.80) 10^3/uL Tate # (Auto) 0.85 H (0.00-0.80) 10^3/uL Eos # (Auto) 0.19 (0.00-0.45) 10^3/uL Baso # (Auto) 0.03 10^3/uL PT 14.4 H (9.7-12.3) SEC INR 1.44 H (0.92-1.18) Sodium 141 (136-145) mEq/L Potassium 4.1 (3.5-5.0) mEq/L Chloride 103 (98-106) mEq/L Carbon Dioxide 34 H (21-32) mmol/L BUN 16 (7-18) mg/dL Creatinine 1.0 (0.6-1.0) mg/dL Est Cr Clr Drug Dosing 27.93 mL/min Estimated GFR (MDRD) 52 L (>=60) mL/min Glucose 95 (75-99) mg/dL Calcium 9.4 (8.4-10.1) mg/dL Total Bilirubin 0.7 (0.0-1.0) mg/dL AST 26 (15-37) U/L ALT 35 (12-78) U/L Alkaline Phosphatase 87 (46-116) U/L Lactate Dehydrogenase 184 (100-190) U/L Creatine Kinase 34 (21-215) U/L Troponin I < 0.017 (0.00-0.06) ng/mL Total Protein 7.7 (6.4-8.2) g/dL Albumin 3.7 (3.4-5.0) g/dL SARS CoV-2 RNA Rapid ANASTASIA (NEGATIVE) 10/11/20 10/11/20 Range/Units 07:25 10:54 WBC (5.0-10.0) 10^3/uL RBC (4.00-5.50) 10^6/uL Hgb (12.0-16.0) g/dL Hct (37.0-47.0) % MCV (82.0-94.0) fL MCH (27.0-32.0) pg MCHC (33.0-38.0) g/dL RDW Coeff of Edmund (11.0-15.0) % Plt Count (150-400) 10^3/uL Neut % (Auto) (35-85) % Lymph % (Auto) (10-55) % Tate % (Auto) (0-16) % Eos % (Auto) (0-5) % Baso % (Auto) (0-3) % Neut # (Auto) (1.80-7.00) 10^3/uL Lymph # (Auto) (1.00-4.80) 10^3/uL Tate # (Auto) (0.00-0.80) 10^3/uL Eos # (Auto) (0.00-0.45) 10^3/uL Baso # (Auto) 10^3/uL PT (9.7-12.3) SEC INR (0.92-1.18) Sodium (136-145) mEq/L Potassium (3.5-5.0) mEq/L Chloride (98-106) mEq/L Carbon Dioxide (21-32) mmol/L BUN (7-18) mg/dL Creatinine (0.6-1.0) mg/dL Est Cr Clr Drug Dosing mL/min Estimated GFR (MDRD) (>=60) mL/min Glucose (75-99) mg/dL Calcium (8.4-10.1) mg/dL Total Bilirubin (0.0-1.0) mg/dL AST (15-37) U/L ALT (12-78) U/L Alkaline Phosphatase (46-116) U/L Lactate Dehydrogenase (100-190) U/L Creatine Kinase (21-215) U/L Troponin I < 0.017 (0.00-0.06) ng/mL Total Protein (6.4-8.2) g/dL Albumin (3.4-5.0) g/dL SARS CoV-2 RNA Rapid ANASTASIA Negative (NEGATIVE) Meds: Medications Discontinued Medications Generic Name Dose Route Start Last Admin Trade Name Freq PRN Reason Stop Dose Admin Diltiazem HCl 360 mg 10/11/20 07:27 10/11/20 08:20 Cardizem Cd PO 10/11/20 07:28 Not Given ONETIME ONE Metoprolol Tartrate 100 mg 10/11/20 07:28 10/11/20 08:20 Lopressor PO 10/11/20 07:29 Not Given ONETIME ONE - Radiology Interpretation Free Text/Narrative:: CXR: no acute findings Head CT: No acute findings CT Results Date: 10/11/20 CT Results Time: 07:35 - Re-Assessments/Exams Free Text/Narrative Re-Assessment/Exam: 10/11/20 07:31 Patient reports that she normally takes her morning medications after eating breakfast, she reports not eating breakfast this morning. She reports not luis her medications this morning. I will give her her morning Cardizem CD and Metoprolol now. Will repeat troponin at 11am. Patient was able to ambulate to the bathroom and back to ER room without difficulty or dizziness, chest pain, shortness of breath. 10/11/20 11:27 Second troponin is negative. Since being here rate is 80s controlled a-fib. Asymptomatic since here. Will discharge home. Departure - Departure Time of Disposition: 11:25 Disposition: Home, Self-Care 01 Condition: Fair Clinical Impression: Atrial fibrillation Qualifiers: Atrial fibrillation type: chronic Qualified Code(s): I48.2 - Chronic atrial fibrillation - Discharge Information *PRESCRIPTION DRUG MONITORING PROGRAM REVIEWED*: Not Applicable *COPY OF PRESCRIPTION DRUG MONITORING REPORT IN PATIENT ASCENCION: Not Applicable Instructions: Atrial Fibrillation, [id number] Referrals: PCP,None [Primary Care Provider] - Forms: ED Department Discharge Additional Instructions: Followup with your primary care provider this week for a recheck Return to the ER for worsening of condition or any emergent concerns Change positions slowly, do not move to quickly Sepsis Event Note (ED) - Evaluation Sepsis Screening Result: No Definite Risk - Focused Exam Vital Signs: Vital Signs Temp Pulse Resp BP Pulse Ox 10/11/20 08:21 104 H 14 133/74 98 10/11/20 06:08 98.2 F 100 22 H 149/84 H 92 L - My Orders Last 24 Hours: My Active Orders 10/11/20 06:13 UA W/MICROSCOPIC [URIN] Stat 10/11/20 06:34 Chest 2V [CR] Stat 10/11/20 06:53 Head wo Cont [CT] Stat - Assessment/Plan Last 24 Hours: My Active Orders 10/11/20 06:13 UA W/MICROSCOPIC [URIN] Stat 10/11/20 06:34 Chest 2V [CR] Stat 10/11/20 06:53 Head wo Cont [CT] Stat Plan: PLEASE SEE RN NOTE FOR PFSH
[2020-10-11] MEDS ORDERED: Diltiazem 180 MG Cap.CD PO ONE (07:27)
[2020-10-11] MEDS ORDERED: Metoprolol Tartrate 50 MG Tab PO ONE (07:28)
[2020-10-11 08:21] VITALS: BP 133/74; PULSE 104
== END 2020-10-11 12:01 | disposition home or self-care (01) ==
LOC: CC.ED 06:00
DX: I48.20 Chronic atrial fibrillation, unspecified (principal); I10 Essential (primary) hypertension; E78.00 Pure hypercholesterolemia, unspecified; Z88.0 Allergy status to penicillin; Z79.01 Long term (current) use of anticoagulants; Z79.899 Other long term (current) drug therapy; Z79.82 Long term (current) use of aspirin; Z20.828 Contact with and (suspected) exposure to other viral communicable diseases
CPT/HCPCS: 36415; 70450; 71046; 80053; 82550; 83615; 84484; 85025; 85610; 93005; 93010; 99284; 99285-25; U0002

== ENCOUNTER 2021-10-20 20:30 | Emergency (ER) | payer MEDICARE, BC ==
[2021-10-20 20:39] VITALS: PULSE 113
--- NOTE | 2021-10-20 21:21 | EDM.PDOC ---
ED HPI GENERAL MEDICAL PROBLEM - General Chief Complaint: ENT Problem Stated Complaint: nose bleed Time Seen by Provider: 10/20/21 20:30 Source of Information: Reports: Patient, Family, Halfway Records History Limitations: Reports: No Limitations - History of Present Illness INITIAL COMMENTS - FREE TEXT/NARRATIVE: Robyn is an 89 year old female who presents to ER with concerns of an intermittent nose bleed over the last 2 days. Daughter relates has been bleeding off and on and when staff tries to pack, she ends up taking the packing out. Patient denies any chest pain, shortness of breath, dizziness or nausea/vomiting. Staff has been using cotton balls and applying clamps to her nose, so she admits she has some discomfort to her nose and forehead as a result. Is currently taking Xarelto for atrial fib. Daughter does not recall any prior issues with nose bleeds. Does report that she uses a fireplace in her home so it may be drier helper than normal at present. 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: Other (see below) Other Treatments COMMISSIONING MANAGER: nasal packing, pressure - Related Data Allergies Allergy/AdvReac Type Severity Reaction Status Date / Time Penicillins Allergy Swelling Verified 10/20/21 20:34 Home Meds: Home Meds Ascorbate Calcium [Vitamin C] 1 cap PO BID 11/17/15 [History] Aspirin [Halfprin] 81 mg PO DAILY 11/17/15 [History] Calcium Carb/D3/Mag AA Chelate [Coral Calcium Capsule] 1 tab PO BID 11/17/15 [History] Metoprolol Tartrate 100 mg PO BID 11/17/15 [History] Multivitamin [Multi-Vitamin Daily] 1 tab PO DAILY 11/17/15 [History] Simvastatin [Zocor] 20 mg PO DAILY 11/17/15 [History] dilTIAZem HCL [Diltiazem 24Hr ER (Cd)] 360 mg PO DAILY 02/17/16 [History] Melatonin 5 mg PO BEDTIME PRN 01/06/19 [History] Rivaroxaban [Xarelto] 20 mg PO DAILY 01/06/19 [History] Furosemide 60 mg PO DAILY 01/07/19 [History] Losartan [Cozaar] 100 mg PO DAILY 01/07/19 [History] Potassium Chloride 20 meq PO DAILY 01/07/19 [History] Cholecalciferol (Vitamin D3) [Vitamin D3] 2,000 unit PO DAILY 10/11/20 [History] Donepezil HCl [Aricept] 23 mg PO DAILY 10/11/20 [History] Mirtazapine [Remeron] 7.5 mg PO BEDTIME 10/11/20 [History] Vitamin B Complex [B Complex] 1 each PO DAILY 10/11/20 [History] Acetaminophen [Tylenol Extra Strength] 2 tab PO TID 10/20/21 [History] Past Medical History HEENT History: Reports: Impaired Vision Other HEENT History: wears glasses Cardiovascular History: Reports: 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, High Cholesterol, 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 Denies: Ear Pain, Sinus Problem, Throat Pain Respiratory: Denies: Shortness of Breath, Cough Cardiovascular: Denies: Chest Pain, Lightheadedness Endocrine: Denies: Fatigue GI/Abdominal: Denies: Abdominal Pain, Nausea, Vomiting Skin: Reports: No Symptoms ED EXAM, ENT - Physical Exam Exam: See Below Exam Limited By: No Limitations General Appearance: Alert, WD/WN, No Apparent Distress Ears: Normal External Exam, Normal TMs Nose: Other (fresh blood noted to left nare, scant bleeding noted after cotton ball removed. Did have patient clear her left nare. Unable to visualize area of bleeding. ) Mouth/Throat: Normal Inspection, Normal Oropharynx Head: Normocephalic Neck: Normal Inspection, Supple, Non-Tender Respiratory/Chest: Lungs Clear Cardiovascular: Irregularly Irregular Neurological: Alert, Oriented (oriented to person and place) Skin: Warm, Dry ED ENT PROCEDURES - Epistaxis Procedure Indication: Epistaxis Recent anticoagulants/antiplatlets: Yes Uncontrolled HTN: No Site of bleeding: Left Nare Clearing of clots: Patient Blew Nose Topical Meds: Phenylephrine Anterior Packing: Other (collagen hemostat inserted with epinephrine 1 ml ) Course - Vital Signs Last Recorded V/S: Last Vital Signs Temp 97.7 F 10/20/21 20:37 Pulse 113 H 10/20/21 20:37 Resp 18 10/20/21 20:37 BP 157/96 H 10/20/21 20:37 Pulse Ox 98 10/20/21 20:37 - Orders/Labs/Meds Labs: Laboratory Tests 10/20/21 Range/Units 20:51 WBC 7.3 (4.0-11.0) 10^3/uL RBC 4.51 (4.00-5.50) x10^6/uL Hgb 14.7 (12.0-16.0) g/dL Hct 44.1 (37.0-47.0) % MCV 97.8 H (83.0-97.0) fL MCH 32.6 H (27.0-32.0) pg MCHC 33.3 (32.0-36.0) g/dL RDW Coeff of Edmund 12.4 (11.0-15.0) % Plt Count 219 (150-400) 10^3/uL Immature Gran % (Auto) 0.1 (0.0-4.9) % Neut % (Auto) 60.6 (41-71) % Lymph % (Auto) 28.1 (24-44) % [place] % (Auto) 8.5 (0-10) % Eos % (Auto) 2.2 (0-6) % Baso % (Auto) 0.5 (0-1) % Neut # (Auto) 4.41 (1.80-8.00) x10^3/uL Lymph # (Auto) 2.05 (0.60-5.00) 10^3/uL [place] # (Auto) 0.62 (0.00-1.50) 10^3/uL Eos # (Auto) 0.16 (0.00-1.50) 10^3/uL Baso # (Auto) 0.04 (0.00-0.50) 10^3/uL Immature Gran # (Auto) 0.01 (0.00-0.49) 10^3/uL Departure - Departure Time of Disposition: 21:29 Disposition: Home, Self-Care 01 Condition: Good Clinical Impression: Epistaxis - Discharge Information *PRESCRIPTION DRUG MONITORING PROGRAM REVIEWED*: Not Applicable *COPY OF PRESCRIPTION DRUG MONITORING REPORT IN PATIENT ASCENCION: Not Applicable Instructions: Nosebleed, Adult, [id number] Forms: ED Department Discharge Additional Instructions: 1. Leave nasal packing in until tomorrow. May remove collagen hemostat from left nare with forcep 2. Saline gel or spray QID 3. Humidifier to room 4. Monitor blood pressure daily and report concerns to Page 5. Return if any recurring concerns. Sepsis Event Note (ED) - Evaluation Sepsis Screening Result: No Definite Risk - Focused Exam Vital Signs: Vital Signs Temp Pulse Resp BP Pulse Ox 10/20/21 20:37 97.7 F 113 H 18 157/96 H 98
[2021-10-20 21:56] VITALS: BP 129/80
== END 2021-10-20 21:45 | disposition home or self-care (01) ==
LOC: CC.ED 20:30
DX: R04.0 Epistaxis (principal); E78.00 Pure hypercholesterolemia, unspecified; I10 Essential (primary) hypertension; I48.91 Unspecified atrial fibrillation; Z88.0 Allergy status to penicillin; Z79.82 Long term (current) use of aspirin; Z79.01 Long term (current) use of anticoagulants; Z79.899 Other long term (current) drug therapy
CPT/HCPCS: 30901; 36415; 85025; 99283